=== PATIENT | female | born 1935 | race Caucasian/White ===

== ENCOUNTER 2017-02-05 18:36 | Inpatient (IN) ==
[2017-02-05] MEDS: *HR* OxyCODONE Immed Rel 5 MG TABLET PO PRN (22:39)
[2017-02-06] MEDS ORDERED: Bisacodyl 10 MG RECTAL SUPPOSITORY RC PRN (02:01)
[2017-02-06] MEDS ORDERED: Acetaminophen 325 MG TABLET PO PRN (02:01)
[2017-02-06] MEDS ORDERED: [UNRECOGNIZED DRUG - OTHER] PO PRN (02:04)
[2017-02-06] MEDS ORDERED: Ondansetron ODT 4 MG TAB.RAPDIS PO PRN (02:04)
[2017-02-06] MEDS ORDERED: MINERAL OIL PO PRN (02:04)
[2017-02-06] MEDS ORDERED: (Alendronate Sodium [Fosamax] 70 MG) PO SCH (02:15)
[2017-02-06] MEDS: *HR* OxyCODONE Immed Rel 5 MG TABLET PO PRN ×4 (02:58→19:54)
[2017-02-06] MEDS ORDERED: Ipratropium/Albuterol Neb 3 ML IH PRN (04:00)
[2017-02-06 05:38] LABS: Basophils % 0.2 %; Eosinophils # 0.1 K/mcL (0.0-0.6); Hematocrit 30.1 % (35.3-44.9); Immature Granulocytes % 0.2 % (0-4); Lymphocytes # 1.6 K/mcL (0.6-4.6); Mean Corpuscular HGB Conc 33.2 g/dL (31.6-35.5); Mean Corpuscular Hemoglobin 29.5 pg (28.0-33.3); Mean Corpuscular Volume 88.8 fL (83.0-100.0); Monocytes # 0.4 K/mcL (0.0-1.3); Monocytes % 8.9 %; Neutrophils # 2.8 K/mcL (1.6-8.9); Platelet Count 207 K/mcL (140-400); Red Blood Count 3.39 M/mcL (3.82-4.97); Red Cell Distribution Width 15.2 % (11.5-14.5); Segmented Neutrophils % 57.7 %
[2017-02-06 05:47] LABS: INR 1.2; Prothrombin Time 12.8 Seconds (9.4-12.1)
[2017-02-06 05:57] LABS: BUN/Creatinine Ratio 9 (6-26); Blood Urea Nitrogen 5 mg/dL (7-20); Carbon Dioxide 28 mEq/L (19-29); Chloride 101 mEq/L (98-109); Glucose 117 mg/dL (70-99); Osmolality,Calculated 286 (280-300); Potassium 3.5 mEq/L (3.5-4.5); Sodium 139 mEq/L (136-145); eGFR For African Americans > 60 (> 60); eGFR For Non-African Americans > 60 (> 60)
[2017-02-06] MEDS: Methocarbamol 500 MG TABLET PO SCH ×4 (06:27→23:15)
[2017-02-06] MEDS: Lactobacillus 1 EACH CAP.SPRINK PO SCH (09:18)
[2017-02-06] MEDS: Famotidine 20 MG TABLET PO SCH ×2 (09:20→21:54)
[2017-02-06] MEDS: Fluticasone Propionate Nasal 50 MCG/SPRAY BOTTLE NS SCH (09:20)
[2017-02-06] MEDS: Sennosides/Docusate Sodium TABLET PO SCH ×2 (09:20→21:54)
[2017-02-06] MEDS: GuaiFENesin Liq 200 MG/10 ML UDC PO SCH (09:21)
[2017-02-06] MEDS: *HR* Heparin 5,000 UNIT/ML VIAL SQ SCH ×3 (09:22→23:15)
[2017-02-06] MEDS: amLODIPine 5 MG TABLET PO SCH (17:26)
--- NOTE | 2017-02-06 18:11 | Internal Med History&Physical ---
Date of Encounter: 02/06/17 Time of Encounter: 18:02 Assessment and Plan (1) Paraplegia at T9 level Current visit: Yes Status: Acute Acute paraplegic T8 level JEWEL A seems like complete at the present time . she is able to move her legs especially flexion little bit she has spams and sever pain at the present time which is being controlled with pain meds She has mild ilieus as per Xray abdomen however she is having a good bowel sounds will give fleet enema and will require some bowel management She has neurogenic bladder intermittent cath pain control and spams control On antibiotics for her surgical area for 10days supportive care (2) Paraplegia following spinal cord injury Current visit: Yes Status: Acute As before (3) HTN (hypertension) Current visit: Yes Status: Acute start Amlodipine small dose and followup Qualifiers: Hypertension type: essential hypertension Qualified Code(s): I10 - Essential (primary) hypertension (4) Neurogenic bladder Current visit: Yes Status: Acute intermittent cath Internal Medicine - H&P: HPI Chief complaint: feel down and had surgery Admitted From: Intrahospital Transfer History of present illness: Ms. Cavazos is a 81 year old female who fell in her driveway and decided to go to ED for care after few days . because of increase pain in her back She was seen in the ED and was told that she had Pneumonia she was treated and sent home and a brace . later while at home her pain increased and got worse and went to the ED again where she was admitted and ended up having surgery at the thoracic area per records she was seen by orthoepic several week ago at [facility] and was noted to have unstable fracture of the t7/8 anteriorly and posteriorly t8/9 . She developed weakness in her legs . pain increased and was admitted for treatment . later she became paraplegic at. she was transferred to [facility] for further treatment Initially she was JEWEL A t8 level Later she was transferred to rehab . At the present time she complains of sever pain and spasm especially in her lower back and abdomen when she moves . She has not been able to urinate . She is passing flatus. She denied any fever or chills , no cough or any other complains expcet for her back pain Past Med Surg Social Fam HX - Past Medical History Medical history: arthritis, COPD, hyperlipidemia, hypertension Psychiatric history: no psych history - Social History Smoking Status: Never smoker Smokeless Tobacco Status: No Alcohol use: none Drug use: none - Family History Mother Living Status: Cause of : Respiratory Hx Family Cardiac Disorders: No Hx Family Respiratory Disorders: Yes (Asthma) Hx Family Cancer: No Internal Medicine - H&P: Meds OxyCODONE Immed Rel [Roxicodone 5 MG] 5 mg PO Q4HR PRN 02/05/17 [History] OxyCODONE Immed Rel [Roxicodone 5 MG] 10 mg PO Q4HR PRN 02/05/17 [History] Acetaminophen [Non-Aspirin] 650 mg PO Q6HR PRN 02/06/17 [History] Alendronate Sodium [Fosamax] 70 mg PO QWEEK 02/06/17 [History] Bisacodyl [Dulcolax] 10 mg RC DAILY PRN 02/06/17 [History] Calcium Carbonate [Antacid] 200 mg PO TID PRN 02/06/17 [History] Cetirizine HCl [Zyrtec] 5 mg PO HS 02/06/17 [History] Clindamycin [Cleocin] 150 mg PO Q6HR 02/06/17 [History] Famotidine [Heartburn Prevention] 20 mg PO BID 02/06/17 [History] Fluticasone Propionate Nasal [Flonase] 50 mcg NS DAILY 02/06/17 [History] Heparin 5,000 unit SQ Q8HR 02/06/17 [History] Ipratropium/Albuterol Neb [Duoneb] 3 ml IH Q4HR PRN 02/06/17 [History] Lactobacillus [Culturelle] 1 each PO DAILY 02/06/17 [History] Melatonin 3 mg PO HS 02/06/17 [History] Methocarbamol [Robaxin] 1,000 mg PO Q6HR 02/06/17 [History] Mineral Oil/Carrageenan [Kondremul Microemulsion] 15 ml PO DAILY PRN 02/06/17 [ History] Ondansetron HCl [Zofran] 4 mg PO Q6HR PRN 02/06/17 [History] Polyethylene Glycol 3350 [MiraLAX] 17 gm PO DAILY 02/06/17 [History] Quetiapine Fumarate [SEROquel] 12.5 mg PO HS 02/06/17 [History] Sennosides/Docusate Sodium [Senna-S Tablet] 1 each PO BID 02/06/17 [History] Sertraline [Zoloft] 25 mg PO DAILY 02/06/17 [History] Tamsulosin [Flomax] 0.4 mg PO HS 02/06/17 [History] guaiFENesin [Guaifenesin] 400 mg PO DAILY 02/06/17 [History] 3 Allergy/AdvReac Type Severity Reaction Status Date / Time Amoxicillin Allergy Rash Verified 02/05/17 20:32 All Systems PM: A 10-system review of systems was performed and is negative for pertinent findings except as documented above in the HPI. - Constitutional Constitutional: falls, weakness, no anorexia, no chills, no excessive sweating - EENT Eyes: no blurry vision, no dry eye, no itchy eyes, no spots in vision Ears: no ear discharge, no ear pain Nose, mouth and throat: no epistaxis, no facial pain, no hoarseness - Breasts Breasts: no nipple discharge - Cardiovascular Cardiovascular ROS IM: no chest pain, no diaphoresis, no dyspnea, no dyspnea on exertion, no edema, no irregular heart rhythm, no paroxysmal nocturnal dyspnea - Respiratory Respiratory: no cough, no dyspnea, no hemoptysis, no stridor, no pain on inspiration, no chest congestion, no pain with cough - Gastrointestinal Gastrointestinal: abdominal pain, heartburn, no diarrhea, no dyspepsia, no dysphagia, no hematochezia, no loose stools, no melena, no nausea, no vomiting Additional comments: pain in lower abdomen and pin especially on movement of body comes in spasm . - Musculoskeletal Musculoskeletal ROS IM: back pain, muscle cramps, no arthralgias, no stiffness - Neurological Neurological ROS: focal weakness, numbness, weakness, no confusion, no convulsions, no dizziness, no headache(s), no loss of vision, no tingling Additional comments: unable to move her legs , sensation is poor no spams in legs so far - Psychiatric Additional comments: some what anxious but feels fine otherwise - Constitutional Vitals: Temp Pulse Resp BP Pulse Ox 98.4 F 93 18 172/71 92 02/06/17 16:47 02/06/17 16:47 02/06/17 16:47 02/06/17 16:47 09/29/17 16:47 General appearance: Present: A&O X 3, severe distress Exam: complains of severe pain comes and goes mostly in the front and back area - Head Head exam: Present: atraumatic - Eye Eye exam: Present: EOMI, PERRL - Neck Neck exam general surgery: Present: supple. Absent: tenderness, nuchal rigidity - Respiratory Respiratory exam: Present: CTAB. Absent: rales, respiratory distress, rhonchi, stridor, wheezes, tachypnea Additional comments: back has surgical scar at Thoracic area wound is healing well no discharge Kyphosis - Cardiovascular Cardiovascular exam: Present: RRR, +S1, +S2. Absent: irregular rhythm, JVD, systolic murmur - GI/Abdominal GI/Abdominal exam: Present: normal bowel sounds, soft, tenderness. Absent: distended, guarding, pulsatile mass, rebound, rigid Additional comments: tenderness is somewhat questionable as when lying flat and not moving there is no pain abdomen is soft and no rebound noted Bowel sounds are good and she is passing flatus - Extremities Exam Extremities exam: Absent: pedal edema, tenderness - Incison Incision: Present: clean and dry, intact - Neurological Exam Neurological exam: Present: alert, CN II-XII intact, oriented X3, reflexes normal Additional comments: upper all muscle gorups 5/5 motor and sensory examination within normla limits lower unable to move her muscle groups all hip 0/5 both side knee flexion 0/5 both sides extension 1/5 both sides Foot planter and flexion 0/5 Toe extension and flexion 0/5 gross sensation 0/2 both sides uptill umbilical area . I didn't do sharp examination or the area in her thighs due to pain when she moves rectal examination npt done tone and tone not assessed. Internal Med - H&P Results - Labs CBC & Chem 7: 02/06/17 05:00 02/06/17 05:00 Labs: Short CBC 02/06/17 Range/Units 05:00 WBC 4.8 (4.3-11.1) K/mcL Hgb 10.0 L (11.5-15.4) g/dL Hct 30.1 L (35.3-44.9) % Plt Count 207 (140-400) K/mcL Neutrophils # 2.8 (1.6-8.9) K/mcL BMP 02/06/17 05:00 Sodium 139 Potassium 3.5 Chloride 101 Carbon Dioxide 28 BUN 5 L Creatinine 0.56 L Glucose 117 H Calcium 9.0 - Impressions ITS Impressions Chest/Abdomen X-ray 02/06/17 10:10 IMPRESSION: 1. Gaseous distension of loops of small and large bowel is probably due to ileus. 2. Patchy opacity in the right mid lung and the left lung base could be due to atelectasis. D/ / Gustavo Mcguire MD / Gustavo Mcguire MD Interpreting Provider: Gustavo Mcguire MD
[2017-02-06] MEDS: Loratadine 10 MG TABLET PO SCH (21:54)
[2017-02-06] MEDS: Melatonin 3 MG TABLET PO SCH (21:54)
[2017-02-07] MEDS: Methocarbamol 500 MG TABLET PO SCH ×3 (05:21→18:02)
[2017-02-07] MEDS: *HR* OxyCODONE Immed Rel 5 MG TABLET PO PRN ×4 (05:22→21:59)
[2017-02-07 08:48] LABS: Basophils % 0.4 %; Eosinophils # 0.1 K/mcL (0.0-0.6); Eosinophils % 0.9 %; Hematocrit 28.1 % (35.3-44.9); Hemoglobin 9.4 g/dL (11.5-15.4); Immature Granulocytes % 0.4 % (0-4); Lymphocytes # 2.1 K/mcL (0.6-4.6); Lymphocytes % 36.5 %; Mean Corpuscular HGB Conc 33.5 g/dL (31.6-35.5); Mean Corpuscular Hemoglobin 29.7 pg (28.0-33.3); Mean Corpuscular Volume 88.6 fL (83.0-100.0); Mean Platelet Volume 10.9 fL (9.4-12.4); Monocytes # 0.5 K/mcL (0.0-1.3); Monocytes % 9.4 %; Neutrophils # 2.9 K/mcL (1.6-8.9); Platelet Count 235 K/mcL (140-400); Red Blood Count 3.17 M/mcL (3.82-4.97); Red Cell Distribution Width 15.2 % (11.5-14.5); Segmented Neutrophils % 52.4 %
[2017-02-07 09:14] LABS: BUN/Creatinine Ratio 17 (6-26); Blood Urea Nitrogen 11 mg/dL (7-20); Carbon Dioxide 27 mEq/L (19-29); Chloride 99 mEq/L (98-109); Glucose 114 mg/dL (70-99); Osmolality,Calculated 284 (280-300); Potassium 3.5 mEq/L (3.5-4.5); Sodium 137 mEq/L (136-145); eGFR For African Americans > 60 (> 60); eGFR For Non-African Americans > 60 (> 60)
[2017-02-07] MEDS: Lactobacillus 1 EACH CAP.SPRINK PO SCH (09:29)
[2017-02-07] MEDS: amLODIPine 5 MG TABLET PO SCH (09:30)
[2017-02-07] MEDS: Sennosides/Docusate Sodium TABLET PO SCH ×2 (09:30→22:00)
[2017-02-07] MEDS: Famotidine 20 MG TABLET PO SCH ×2 (09:30→21:59)
[2017-02-07] MEDS: GuaiFENesin Liq 200 MG/10 ML UDC PO SCH (09:32)
[2017-02-07] MEDS: Fluticasone Propionate Nasal 50 MCG/SPRAY BOTTLE NS SCH ×2 (09:32→22:06)
[2017-02-07] MEDS: *HR* Heparin 5,000 UNIT/ML VIAL SQ SCH ×2 (09:32→18:03)
--- NOTE | 2017-02-07 10:52 | Internal Med Progress Note ---
Date of Encounter: 02/07/17 Time of Encounter: 10:50 - Assessment and plan (1) Paraplegia at T9 level Current Visit: Yes Status: Acute Assessment and plan: new onset She is in rehab , needs to prevent any skin breaks Air cushion mattress heel protectors , family and her needs to be aware of her prognosis , pain control and spasm control , noted Anemia workup ordered Bowel and ladder functions needs to monitored , She had a bowel movement might need enema regulars. samll dose of SSRI she will benefit with mental health involvement early on to help her handle this trauma (2) Paraplegia following spinal cord injury Current Visit: Yes Status: Acute Assessment and plan: As above (3) HTN (hypertension) Current Visit: Yes Status: Acute Assessment and plan: mildly high but will follow and adjust her meds on Amlodipine Qualifiers: Hypertension type: essential hypertension Qualified Code(s): I10 - Essential (primary) hypertension (4) Neurogenic bladder Current Visit: Yes Status: Acute Assessment and plan: intermittent catheter avoid skin breaks - Subjective Interval history: with medications . No chest pain no SOB , had bowel movement last night passing flatus . no fever or chills not able to move her legs at all complains of pain in her back and abdomen . she has this pain since her surgery , however pain seems to be getting better - Constitutional Vitals: Temp Pulse Resp BP Pulse Ox 97.8 F 80 16 152/66 91 02/07/17 07:07 02/07/17 07:07 02/07/17 07:07 02/07/17 07:07 02/07/17 07:07 General appearance: Present: A&O X 3, severe distress, answers questions appropriately Exam: she is in midl distress especially when she moves . feels better in a particular posture otherwise appetite is decent an is eating - Head Head exam: Present: atraumatic - Eye Eye exam: Present: EOMI, PERRL - Neck Neck exam general surgery: Present: supple. Absent: tenderness, nuchal rigidity - Respiratory Respiratory exam: Absent: respiratory distress, rhonchi, stridor, wheezes, tachypnea Additional comments: decrease air entry bases otherwise clear - Cardiovascular Cardiovascular exam: Present: RRR, +S1, +S2. Absent: irregular rhythm, JVD, systolic murmur - GI/Abdominal GI/Abdominal exam: Present: normal bowel sounds, soft. Absent: guarding, rebound, rigid Additional comments: soft non tenderness BS ++ - Extremities Exam Extremities exam: Absent: pedal edema, tenderness, warm - Back Exam Additional comments: kyphosis surgical scar stable - Neurological Exam Neurological exam: Present: CN II-XII intact, oriented X3. Absent: no focal deficits Additional comments: she is able to move her legs slighlty today both . she could move her both great toes 5/5 upper limb 0/5 hip flexion both sides 1/5 both knee flexion 0/5 both side knee extension planter and dorsiflexion 0/5 sensory dgrolly up to thoracic 7 impaired Internal Medicine: Result - Labs CBC & Chem 7: 02/07/17 08:10 02/07/17 08:10 Labs: Short CBC 02/07/17 Range/Units 08:10 WBC 5.6 (4.3-11.1) K/mcL Hgb 9.4 L (11.5-15.4) g/dL Hct 28.1 L (35.3-44.9) % Plt Count 235 (140-400) K/mcL Neutrophils # 2.9 (1.6-8.9) K/mcL BMP 02/07/17 08:10 Sodium 137 Potassium 3.5 Chloride 99 Carbon Dioxide 27 BUN 11 Creatinine 0.65 Glucose 114 H Calcium 9.0 - ABG Interpretation ABG results: PT/INR, D-dimer PT 12.8 Seconds (9.4-12.1) H 02/06/17 05:00 - Impressions Impressions Chest/Abdomen X-ray 02/06/17 10:10 IMPRESSION: 1. Gaseous distension of loops of small and large bowel is probably due to ileus. 2. Patchy opacity in the right mid lung and the left lung base could be due to atelectasis. D/ / Gustavo Mcguire MD / Gustavo Mcguire MD Interpreting Provider: Gustavo Mcguire MD Consult Discharge Plan - Plan Referrals: NONE,PCP [Primary Care Provider] -
[2017-02-07] MEDS: *HR* OxyCODONE Immed Rel 5 MG TABLET PO SCH (18:01)
[2017-02-07 19:18] LABS: Thyroid Stimulating Hormone 6.356 mcIU/mL (0.350-4.840)
[2017-02-07] MEDS: Loratadine 10 MG TABLET PO SCH (22:01)
[2017-02-07] MEDS: Melatonin 3 MG TABLET PO SCH (22:01)
[2017-02-08] MEDS: *HR* Heparin 5,000 UNIT/ML VIAL SQ SCH ×3 (01:44→17:09)
[2017-02-08] MEDS: Methocarbamol 500 MG TABLET PO SCH ×4 (01:45→17:09)
[2017-02-08] MEDS: *HR* OxyCODONE Immed Rel 5 MG TABLET PO SCH ×3 (01:46→17:09)
--- NOTE | 2017-02-08 10:18 | Internal Med Progress Note ---
Date of Encounter: 02/08/17 Time of Encounter: 10:16 - Assessment and plan (1) Paraplegia at T9 level Current Visit: Yes Status: Acute Assessment and plan: JEWEL A complete stable at the present time Pain is some what better controlled TSH is mildly high will followup if needed she could be started on a small dose but she is asymptomatic at the present time so are her spams . Needs PT and other assessment , still requires intermittent catheterizing continue supportive care Incision is stable Vickers rods for stabilization of her back (2) Paraplegia following spinal cord injury Current Visit: Yes Status: Acute Assessment and plan: As above (3) HTN (hypertension) Current Visit: Yes Status: Acute Assessment and plan: stable mildly high but considering her age would continue to keep it little on the higher end Qualifiers: Hypertension type: essential hypertension Qualified Code(s): I10 - Essential (primary) hypertension (4) Neurogenic bladder Current Visit: Yes Status: Acute Assessment and plan: no new change (5) Anemia Current Visit: Yes Status: Chronic Qualifiers: Anemia type: iron deficiency Qualified Code(s): D50.8 - Other iron deficiency anemias - Subjective Interval history: Complains of some dyspepsia otherwise feels fine her pain is somewhat better controlled and episodes of spasms which she was havingearleir have subsided . eating ok unable to urinate. had Bowel movement yesterday no fever or chill requires intermittent catheterizing - Constitutional Vitals: Temp Pulse Resp BP Pulse Ox 98.5 F 77 16 148/96 93 02/08/17 07:42 02/08/17 07:42 02/08/17 07:42 02/08/17 07:42 02/08/17 07:42 General appearance: Present: A&O X 3, no acute distress, answers questions appropriately - Head Head exam: Present: atraumatic - Eye Eye exam: Present: EOMI, PERRL - Neck Neck exam general surgery: Present: supple. Absent: tenderness, nuchal rigidity - Respiratory Respiratory exam: Present: CTAB. Absent: chest wall tenderness, stridor, wheezes, tachypnea Additional comments: essentially clear mild crackles at the bases - Cardiovascular Cardiovascular exam: Present: RRR, +S1, +S2. Absent: gallop, irregular rhythm, JVD - GI/Abdominal GI/Abdominal exam: Present: normal bowel sounds, soft. Absent: firm, guarding, rebound, rigid Additional comments: No apparent tenderness on palpation BS ++ - Extremities Exam Extremities exam: Absent: pedal edema, tenderness, warm - Incison Incision: Present: clean and dry - Neurological Exam Neurological exam: Present: altered, CN II-XII intact, oriented X3. Absent: pronater drift, facial droop Additional comments: upper motor functions normal lower mild movement both legs able to move her ankles little otherwise motor function is none sensation is same at well - Expanded Neurological Exam Upper motor neuron: Babinski sign: Normal, Medardo neglect: Normal, pronator drift : Normal, sensory extinction: Normal Neuro motor strength exam: LUE: 5, RUE: 5, LLE: 2/, RLE: 2/ Internal Medicine: Result - Labs CBC & Chem 7: 02/07/17 08:10 02/07/17 08:10 - ABG Interpretation ABG results: PT/INR, D-dimer PT 12.8 Seconds (9.4-12.1) H 02/06/17 05:00 Consult Discharge Plan - Plan Referrals: NONE,PCP [Primary Care Provider] -
[2017-02-08] MEDS: Famotidine 20 MG TABLET PO SCH ×2 (10:46→20:44)
[2017-02-08] MEDS: Lactobacillus 1 EACH CAP.SPRINK PO SCH (10:46)
[2017-02-08] MEDS: Sennosides/Docusate Sodium TABLET PO SCH ×2 (10:47→20:45)
[2017-02-08] MEDS: amLODIPine 5 MG TABLET PO SCH (10:47)
[2017-02-08] MEDS: *HR* OxyCODONE Immed Rel 5 MG TABLET PO PRN ×2 (13:09→20:43)
[2017-02-08] MEDS: GuaiFENesin Liq 200 MG/10 ML UDC PO SCH (13:22)
[2017-02-08 19:13] LABS: Thyroid Stimulating Hormone 8.123 mcIU/mL (0.350-4.840)
[2017-02-08] MEDS: Melatonin 3 MG TABLET PO SCH (20:46)
[2017-02-08] MEDS: Loratadine 10 MG TABLET PO SCH (20:46)
[2017-02-09] MEDS: Methocarbamol 500 MG TABLET PO SCH ×4 (01:18→17:56)
[2017-02-09] MEDS: *HR* Heparin 5,000 UNIT/ML VIAL SQ SCH ×3 (01:19→17:56)
[2017-02-09] MEDS: *HR* OxyCODONE Immed Rel 5 MG TABLET PO SCH ×3 (01:19→17:57)
[2017-02-09] MEDS: *HR* OxyCODONE Immed Rel 5 MG TABLET PO PRN ×2 (05:14→11:48)
[2017-02-09] MEDS: amLODIPine 5 MG TABLET PO SCH (09:24)
[2017-02-09] MEDS: Famotidine 20 MG TABLET PO SCH ×2 (09:24→20:38)
[2017-02-09] MEDS: Sennosides/Docusate Sodium TABLET PO SCH ×2 (09:24→20:38)
[2017-02-09] MEDS: Fluticasone Propionate Nasal 50 MCG/SPRAY BOTTLE NS SCH (09:26)
[2017-02-09] MEDS: GuaiFENesin Liq 200 MG/10 ML UDC PO SCH (09:27)
[2017-02-09] MEDS: Melatonin 3 MG TABLET PO SCH (20:37)
[2017-02-09] MEDS: Loratadine 10 MG TABLET PO SCH (20:38)
[2017-02-10] MEDS: *HR* Heparin 5,000 UNIT/ML VIAL SQ SCH ×3 (01:57→15:59)
[2017-02-10] MEDS: *HR* OxyCODONE Immed Rel 5 MG TABLET PO SCH ×3 (01:58→15:59)
[2017-02-10] MEDS: Methocarbamol 500 MG TABLET PO SCH ×4 (01:58→17:41)
[2017-02-10] MEDS: *HR* OxyCODONE Immed Rel 5 MG TABLET PO PRN (06:04)
[2017-02-10] MEDS: Lactobacillus 1 EACH CAP.SPRINK PO SCH (08:28)
[2017-02-10] MEDS: Famotidine 20 MG TABLET PO SCH ×2 (08:29→20:35)
[2017-02-10] MEDS: amLODIPine 5 MG TABLET PO SCH (08:29)
[2017-02-10] MEDS: Sennosides/Docusate Sodium TABLET PO SCH ×2 (08:29→20:35)
[2017-02-10] MEDS: Fluticasone Propionate Nasal 50 MCG/SPRAY BOTTLE NS SCH (08:30)
[2017-02-10] MEDS: GuaiFENesin Liq 200 MG/10 ML UDC PO SCH (08:30)
--- NOTE | 2017-02-10 15:20 | Internal Med Progress Note ---
Date of Encounter: 02/10/17 Time of Encounter: 15:18 - Assessment and plan (1) Paraplegia at T9 level Current Visit: Yes Status: Acute Assessment and plan: Patient is undergoing therapy PT OT and TR. (2) Paraplegia following spinal cord injury Current Visit: Yes Status: Acute Assessment and plan: Apparently due to her recent back injury - Time Spent With Patient less than 15 minutes - Subjective Interval history: Still complains of abdominal discomfort but x-ray shows no obstructive bowel pattern. We will arrange for her to pain meds at night she stated pain makes it hard to sleep - Constitutional Vitals: Temp Pulse Resp BP Pulse Ox 98.2 F 96 17 123/72 94 02/10/17 07:59 02/10/17 07:59 02/09/17 19:18 02/10/17 07:59 02/10/17 07:59 General appearance: Present: A&O X 3, no acute distress, answers questions appropriately - Head Head exam: Present: atraumatic, normal inspection, normocephalic - Neck Neck exam general surgery: Present: supple, trachea midline. Absent: lymphadenopathy - Respiratory Respiratory exam: Present: CTAB. Absent: accessory muscle use, rales, rhonchi, wheezes - Cardiovascular Cardiovascular exam: Present: RRR, +S1, +S2. Absent: diastolic murmur, gallop, rubs, systolic murmur Internal Medicine: Result - Labs CBC & Chem 7: 02/07/17 08:10 02/07/17 08:10 Labs: Lab looks okay - ABG Interpretation ABG results: PT/INR, D-dimer PT 12.8 Seconds (9.4-12.1) H 02/06/17 05:00 - Impressions Impressions KUB X-Ray 02/10/17 11:43 IMPRESSION: Nonobstructive bowel gas pattern. D/ / Luisito Frank MD / Luisito Frank MD Interpreting Provider: Luisito Frank MD Consult Discharge Plan - Plan Referrals: NONE,PCP [Primary Care Provider] -
[2017-02-10] MEDS: Melatonin 3 MG TABLET PO SCH (20:35)
[2017-02-10] MEDS: Loratadine 10 MG TABLET PO SCH (20:36)
[2017-02-10] MEDS: *HR* OxyCODONE ER (12 HR) 10 MG TABLET PO SCH (20:36)
[2017-02-11] MEDS: *HR* Heparin 5,000 UNIT/ML VIAL SQ SCH ×3 (01:12→15:38)
[2017-02-11] MEDS: Methocarbamol 500 MG TABLET PO SCH ×4 (01:12→17:27)
[2017-02-11] MEDS: *HR* OxyCODONE Immed Rel 5 MG TABLET PO SCH ×2 (01:13→15:37)
[2017-02-11] MEDS: Famotidine 20 MG TABLET PO SCH ×2 (08:34→21:04)
[2017-02-11] MEDS: Lactobacillus 1 EACH CAP.SPRINK PO SCH (08:34)
[2017-02-11] MEDS: amLODIPine 5 MG TABLET PO SCH (08:34)
[2017-02-11] MEDS: *HR* OxyCODONE ER (12 HR) 10 MG TABLET PO SCH ×2 (08:34→21:04)
[2017-02-11] MEDS: Fluticasone Propionate Nasal 50 MCG/SPRAY BOTTLE NS SCH (08:37)
[2017-02-11] MEDS: Sennosides/Docusate Sodium TABLET PO SCH (11:08)
[2017-02-11] MEDS: GuaiFENesin Liq 200 MG/10 ML UDC PO SCH (11:08)
[2017-02-11] MEDS ORDERED: Sennosides/Docusate Sodium TABLET PO PRN (11:50)
--- NOTE | 2017-02-11 14:58 | Internal Med Progress Note ---
Date of Encounter: 02/11/17 Time of Encounter: 14:56 - Assessment and plan (1) Paraplegia at T9 level Current Visit: Yes Status: Acute Assessment and plan: Okay patient had some falls with spinal osteo-pruritic damage and was having paralysis below T9 (2) Paraplegia following spinal cord injury Current Visit: Yes Status: Acute Assessment and plan: See above - Time Spent With Patient less than 15 minutes - Subjective Interval history: Patient just returned from her surgeon's office. Receiving orders for her back brace which can be off it at bedtime but do not know what the balance of the assessment - Constitutional Vitals: Temp Pulse Resp BP Pulse Ox 98.2 F 85 16 159/71 94 02/11/17 07:19 02/11/17 07:19 02/11/17 07:19 02/11/17 07:19 02/11/17 07:19 General appearance: Present: A&O X 3, no acute distress, answers questions appropriately - Head Head exam: Present: atraumatic, normal inspection, normocephalic - Neck Neck exam general surgery: Present: supple, trachea midline. Absent: lymphadenopathy - Respiratory Respiratory exam: Present: CTAB. Absent: accessory muscle use, rales, rhonchi, wheezes - Cardiovascular Cardiovascular exam: Present: RRR, +S1, +S2. Absent: diastolic murmur, gallop, rubs, systolic murmur Internal Medicine: Result - Labs CBC & Chem 7: 02/07/17 08:10 02/07/17 08:10 Labs: Lab is stable - ABG Interpretation ABG results: PT/INR, D-dimer PT 12.8 Seconds (9.4-12.1) H 02/06/17 05:00 - Impressions Impressions KUB X-Ray 02/10/17 11:43 IMPRESSION: Nonobstructive bowel gas pattern. D/ / Luisito Frank MD / Luisito Frank MD Interpreting Provider: Luisito Frank MD Consult Discharge Plan - Plan Referrals: NONE,PCP [Primary Care Provider] -
[2017-02-11] MEDS: Loratadine 10 MG TABLET PO SCH (21:04)
[2017-02-11] MEDS: Melatonin 3 MG TABLET PO SCH (21:04)
[2017-02-12] MEDS: Methocarbamol 500 MG TABLET PO SCH (00:06)
[2017-02-12] MEDS: *HR* OxyCODONE Immed Rel 5 MG TABLET PO SCH (00:07)
[2017-02-12] MEDS: *HR* Heparin 5,000 UNIT/ML VIAL SQ SCH (00:08)
[2017-02-12 01:37] VITALS: BP 138/97
--- NOTE | 2017-02-24 15:36 | Discharge Summary ---
Date of Encounter: 02/12/17 Time of Encounter: 15:34 - Discharge Diagnosis (1) Paraplegia at T9 level Priority: Primary Status: Acute (2) Paraplegia following spinal cord injury Priority: Primary Status: Acute - Discharge Medications Home Medications: OxyCODONE Immed Rel [Roxicodone 5 MG] 5 mg PO Q4HR PRN 02/05/17 [History] OxyCODONE Immed Rel [Roxicodone 5 MG] 10 mg PO Q4HR PRN 02/05/17 [History] Acetaminophen [Non-Aspirin] 650 mg PO Q6HR PRN 02/06/17 [History] Alendronate Sodium [Fosamax] 70 mg PO QWEEK 02/06/17 [History] Bisacodyl [Dulcolax] 10 mg RC DAILY PRN 02/06/17 [History] Calcium Carbonate [Antacid] 200 mg PO TID PRN 02/06/17 [History] Cetirizine HCl [Zyrtec] 5 mg PO HS 02/06/17 [History] Clindamycin [Cleocin] 150 mg PO Q6HR 02/06/17 [History] Famotidine [Heartburn Prevention] 20 mg PO BID 02/06/17 [History] Fluticasone Propionate Nasal [Flonase] 50 mcg NS DAILY 02/06/17 [History] Heparin 5,000 unit SQ Q8HR 02/06/17 [History] Ipratropium/Albuterol Neb [Duoneb] 3 ml IH Q4HR PRN 02/06/17 [History] Lactobacillus [Culturelle] 1 each PO DAILY 02/06/17 [History] Melatonin 3 mg PO HS 02/06/17 [History] Methocarbamol [Robaxin] 1,000 mg PO Q6HR 02/06/17 [History] Mineral Oil/Carrageenan [Kondremul Microemulsion] 15 ml PO DAILY PRN 02/06/17 [ History] Ondansetron HCl [Zofran] 4 mg PO Q6HR PRN 02/06/17 [History] Polyethylene Glycol 3350 [MiraLAX] 17 gm PO DAILY 02/06/17 [History] Quetiapine Fumarate [SEROquel] 12.5 mg PO HS 02/06/17 [History] Sennosides/Docusate Sodium [Senna-S Tablet] 1 each PO BID 02/06/17 [History] Sertraline [Zoloft] 25 mg PO DAILY 02/06/17 [History] Tamsulosin [Flomax] 0.4 mg PO HS 02/06/17 [History] guaiFENesin [Guaifenesin] 400 mg PO DAILY 02/06/17 [History] Allergies/Adverse Reactions: 3 Allergy/AdvReac Type Severity Reaction Status Date / Time Amoxicillin Allergy Rash Verified 02/05/17 20:32 Date of admission: 02/05/17 19:07 Primary care physician: PCP NONE Consults: 02/06/17 02:10 Consult to Occupational Therapy [CONS] Routine Comment: Eval and treat Reason for Consult: Eval and treat Consult to Physical Therapy [CONS] Routine Comment: Eval and treat Reason for Consult: Eval and treat Consult to Tread Cutter [CONS] Routine Reason for SW Consult: Eval and treat 02/06/17 02:14 Consult to Speech Therapy [CONS] Routine Comment: Evaluate, develop and implement POC Reason for Consult: Eval and treat Call Completed: Yes 02/10/17 11:41 Consult to Psychology [CONS] Routine Consulting Provider: Sommer Shaw Reason for Consult: New diagnosis Call Completed: Yes 02/11/17 13:09 Consult to Recreational Therapy [CONS] Routine Comment: Discharging clinician: Bhavesh Neri Anticipated date of discharge: 02/12/17 - Patient Status Disposition: Transfer Other Condition: Fair Functional capacity at discharge: uses cane/walker Overall status at discharge: patient is not back to baseline - Discharge Instructions Follow Up With: NONE,PCP [Primary Care Provider] - - Diet and Activity Activity: as per physical therapy (Patient was immediately transferred back to her surgeon at his request after reviewing the x-ray) Interval History: Patient was brought here for rehabilitation after sustaining a fall and some fractures of her vertebral bodies. While she was here she saw the surgeon who called us after the patient returned back here and stated they needed her transferred immediately because the hardware was loose= Hospital course: Ms. Cavazos is a 81 year old female A she was returned to her surgeon at his request to adjust hardware - Time Spent with Patient Total time spent providing and/or coordinating discharge services: Less than 30 minutes - Constitutional Vitals: Temp Pulse Resp BP Pulse Ox 97.5 F L 101 20 138/97 91 02/12/17 00:25 02/12/17 00:25 02/12/17 00:25 02/12/17 00:25 02/12/17 00:25 General appearance: Present: A&O X 3, no acute distress, answers questions appropriately - Head Head exam: Present: atraumatic, normal inspection, normocephalic - Neck Neck exam general surgery: Present: supple, trachea midline. Absent: lymphadenopathy - Respiratory Respiratory exam: Present: CTAB. Absent: accessory muscle use, rales, rhonchi, wheezes - Cardiovascular Cardiovascular exam: Present: RRR, +S1, +S2. Absent: diastolic murmur, gallop, rubs, systolic murmur
== END 2017-02-12 01:03 | disposition short-term general hospital (02) | DRG 560 ==
LOC: INPGRE 19:07
PROVIDERS: ADMIT Internal Medicine; ATTEND Internal Medicine